=== PATIENT | female | born 1975 | race Caucasian/White ===

== ENCOUNTER → 2017-01-29 | Outpatient (CLI) | payer BC ==
[~2017-01-29] MED LIST: ACET-1311 PO; DIAZ5TAB3 PO; DIPH25CA37 PO; GADAVIST IV PRN; KLN5X PO; NRN600 PO; PRED20TA PO; PRX/40 PO; ZOLP10TA PO
--- NOTE | 2017-01-30 11:17 | DIAGNOSTIC IMAGING REPORT ---
Brain MRI WITH AND WITHOUT CONTRAST HISTORY: S/P CRANI, H/O hemangioblastoma TECHNIQUE: Multiplanar multisequence MRI of the brain was performed both before and after the intravenous administration of contrast. COMPARISON STUDY: None. FINDINGS: No areas of restricted diffusion to suggest acute infarction. The midline structures are intact. The paranasal sinuses and mastoid air cells are clear. The major vascular flow-voids at the skull base are well-maintained. The ventricles are normal in size. There is no hematoma or midline shift. Evidence for prior right suboccipital craniotomy. Small focus of encephalomalacia within the periphery of the right cerebellar hemisphere consistent with postoperative change. No abnormal enhancement to suggest recurrent or residual neoplasm. There are 3 punctate foci of T2 hyperintensity seen within the white matter of the right frontal lobe. These are of doubtful clinical significance but could be seen in the setting of early microvascular ischemic change, migraines or less likely a demyelinating process. IMPRESSION: Postoperative changes within the right cerebral hemisphere. No abnormal enhancement to suggest residual or recurrent neoplasm. Electronically signed by: Scottie Watts M.D. 01/30/2017 11:16 AM Dictated Date/Time: 01/30/2017 11:10 AM
== END | disposition home or self-care (01) ==
LOC: C.MRI 15:12
PROVIDERS: ATTEND Specialist
DX: D43.2 Neoplasm of uncertain behavior of brain, unspecified (principal)

== ENCOUNTER 2017-05-24 13:44 | Emergency (ER) | payer BC ==
[~2017-05-24] VITALS: Ht 160 cm; Wt 46.3 kg
[~2017-05-24 13:44] MED LIST changes: -ACET-1311 PO; -DIAZ5TAB3 PO; -GADAVIST IV PRN; -KLN5X PO; -NRN600 PO; -PRX/40 PO
[2017-05-24 13:59] VITALS: TEMP 37; O2SAT 99; Ht 160 cm; Wt 46.3 kg
[2017-05-24] MEDS ORDERED: DIAZEPAM 5MG TAB PO STA (14:18)
[2017-05-24 14:34] LABS: BASO % 0.3 %; BASO ABS # 0.02 K/uL (0-0.2); COMPLETE YES; EOS % 1.1 %; HEMATOCRIT 38.5 % (37-47); IG% 0.1 %; LYMPH ABS # 2.06 K/uL (1.2-3.4); MEAN CELL VOLUME 84.2 fL (80-100); MEAN CORPUSCULAR HEMOGLOBIN 29.3 pg (25-34); MEAN CORPUSCULAR HGB CONC 34.8 g/dl (32-36); MEAN PLATELET VOLUME 10.5 fL (7.4-10.4); MONO % 3.7 %; NEUT % 65.8 %; PLATELET COUNT 247 K/uL (130-400); RED BLOOD COUNT 4.57 M/uL (4.2-5.4)
[2017-05-24 14:41] LABS: BUN/CREATININE RATIO 19.1 (10-20); CALCIUM 9.5 mg/dl (8.5-10.1); CREATININE 0.98 mg/dl (0.60-1.20); POTASSIUM 4.6 mmol/L (3.5-5.1)
[2017-05-24 14:44] LABS: ALB/GLOB RATIO 1.1 (0.9-2)
[2017-05-24] MEDS ORDERED: KLN5X PO (15:11)
[2017-05-24] MEDS ORDERED: ACET-1311 PO (15:11)
[2017-05-24] MEDS ORDERED: NRN600 PO (15:11)
[2017-05-24] MEDS ORDERED: PRX/40 PO (15:11)
--- NOTE | 2017-05-24 15:18 | DIAGNOSTIC IMAGING REPORT ---
HEAD WITHOUT CONTRAST (CT) CLINICAL HISTORY: 41 years-old Female with left facial twitch. History of brain tumor with prior surgery. Acute facial twitching on the left TECHNIQUE: Multiple axial CT images of the head were obtained without contrast. A dose lowering technique was utilized adhering to the principles of ALARA. CT DOSE: 537.48 mGy.cm COMPARISON: MRI brain 01/29/2017. FINDINGS: No acute intracranial hemorrhage, midline shift, mass, large territorial ischemia or abnormal extra-axial collection. Postoperative changes of the right occipital calvarium and right cerebellar hemisphere redemonstrated. Mild encephalomalacia within the right cerebellar hemisphere noted. The calvarium is intact. The paranasal sinuses, mastoid air cells, and middle ear cavities are clear. IMPRESSION: 1. No acute intracranial abnormality. 2. Postsurgical changes of the right occipital calvarium and right cerebellar hemisphere redemonstrated. The above report was generated using voice recognition software. It may contain grammatical, syntax or spelling errors. Electronically signed by: Tremaine Padilla M.D. 05/24/2017 3:17 PM Dictated Date/Time: 05/24/2017 3:13 PM
[2017-05-24] MEDS ORDERED: DIAZ5TAB3 PO (17:12)
--- NOTE | 2017-05-24 17:18 | EMERGENCY ROOM VISIT NOTE ---
History Report prepared by Maidaibdebra: Anand Bass Under the Supervision of: Dr. Cm Sidhu M.D. First contact with patient: 14:12 Chief Complaint: NEURO SYMPTOMS History of Present Illness The patient is a 41 year old female who presents to the Emergency Room by EMS with complaints of intermittent left sided facial twitching beginning one hour ago. She has no history of similar symptoms. She also complains of headaches. The patient states that she has had tingling in her bilateral legs for the past hour as well. She denies any rapid breathing, visual changes, or hearing changes. The patient had a neural stimulator removed surgically yesterday. 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 She states that the stimulator was a trial test. The patient states that she had the stimulator placed three days earlier. She notes that the stimulator helped significantly with her chronic headaches. She states that the surgical area feels sore. Source of History: patient Onset: One hour ago Position: head (left face) Quality: other (twitching) Timing: intermittent Associated Symptoms: + headache Note: The patient denies any rapid breathing, visual changes, or hearing changes. She also complains of bilateral leg tingling. Review of Systems All systems have been listed, reviewed, and are negative other than those previously mentioned. Please see Additional Medical History Sheet. Past Medical & Surgical Medical Problems: (1) Endometriosis (2) No Known Active Medical Problems Surgical Problems: (1) H/O tubal ligation (2) History of hysterectomy Family History Cancer Heart disease Hypertension Social History Smoking Status: Current Every Day Smoker Alcohol Use: none Marital Status: Housing Status: lives with family Occupation Status: unemployed Current/Historical Medications Scheduled Clonazepam (Clonazepam), 0.5-1 MG PO HS Gabapentin (Gabapentin), 1,200 MG PO TID Paroxetine (Paroxetine HCl), 40 MG PO HS Scheduled PRN Acetaminophen (Tylenol), 650 MG PO Q8 PRN for Pain Diazepam (Valium), 1 TAB PO Q6 PRN for twitching Allergies Coded Allergies: Hydromorphone (Verified Allergy, Severe, HIVES, 11/05/14) Penicillins (Unverified Allergy, Unknown, HIVES, 05/24/17) Physical Exam Vital Signs Date Time Temp Pulse Resp B/P (MAP) Pulse Ox O2 Delivery O2 Flow Rate FiO2 10/7/17 13:59 99 Room Air 05/24/17 13:59 37.0 71 16 117/70 99 Room Air 05/24/17 13:56 72 Physical Exam GENERAL: Patient awake, alert, oriented x 3. Appears anxious. Patient follows commands. Patient does not appear toxic. Patient is adequately hydrated and well-nourished. SKIN: No erythema, pallor, cyanosis or rash HEENT: Normal head, pupils equal, reactive to light and accommodation. Ears normal. Oral cavity and posterior pharynx appear normal. Neck: Without adenopathy, no neck vein distention. LUNGS: Clear to auscultation. No wheezes, no rales, no rhonchi. HEART: No murmurs. No gallops. No rubs ABDOMEN: Soft and non-tender. EXTREMITIES: No signs of trauma. No pedal or pretibial edema. No calf or thigh tenderness. NEUROLOGIC: Left facial droop with an elevation of her left upper lip. Moves all extremities well. Medical Decision & Procedures ER Provider Diagnostic Interpretation: CT results are interpretations by the radiologist and per my review. HEAD WITHOUT CONTRAST (CT) FINDINGS: No acute intracranial hemorrhage, midline shift, mass, large territorial ischemia or abnormal extra-axial collection. Postoperative changes of the right occipital calvarium and right cerebellar hemisphere redemonstrated. Mild encephalomalacia within the right cerebellar hemisphere noted. The calvarium is intact. The paranasal sinuses, mastoid air cells, and middle ear cavities are clear. IMPRESSION: 1. No acute intracranial abnormality. 2. Postsurgical changes of the right occipital calvarium and right cerebellar hemisphere redemonstrated. The above report was generated using voice recognition software. It may contain grammatical, syntax or spelling errors. Electronically signed by: Tremaine Padilla M.D. 05/24/2017 3:17 PM Laboratory Results 05/24/17 13:30 Red Blood Count 4.57, Mean Corpuscular Volume 84.2, Mean Corpuscular Hemoglobin 29.3, Mean Corpuscular Hemoglobin Concent 34.8, Mean Platelet Volume 10.5, Neutrophils (%) (Auto) 65.8, Lymphocytes (%) (Auto) 29.0, Monocytes (%) (Auto) 3.7, Eosinophils (%) (Auto) 1.1, Basophils (%) (Auto) 0.3, Neutrophils # (Auto) 4.67, Lymphocytes # (Auto) 2.06, Monocytes # (Auto) 0.26, Eosinophils # (Auto) 0.08, Basophils # (Auto) 0.02 05/24/17 13:30 Test 05/24/17 13:30 White Blood Count 7.10 K/uL (4.8-10.8) Red Blood Count 4.57 M/uL (4.2-5.4) Hemoglobin 13.4 g/dL (12.0-16.0) Hematocrit 38.5 % (37-47) Mean Corpuscular Volume 84.2 fL (80-100) Mean Corpuscular Hemoglobin 29.3 pg (25-34) Mean Corpuscular Hemoglobin Concent 34.8 g/dl (32-36) Platelet Count 247 K/uL (130-400) Mean Platelet Volume 10.5 fL (7.4-10.4) Neutrophils (%) (Auto) 65.8 % Lymphocytes (%) (Auto) 29.0 % Monocytes (%) (Auto) 3.7 % Eosinophils (%) (Auto) 1.1 % Basophils (%) (Auto) 0.3 % Neutrophils # (Auto) 4.67 K/uL (1.4-6.5) Lymphocytes # (Auto) 2.06 K/uL (1.2-3.4) Monocytes # (Auto) 0.26 K/uL (0.11-0.59) Eosinophils # (Auto) 0.08 K/uL (0-0.5) Basophils # (Auto) 0.02 K/uL (0-0.2) RDW Standard Deviation 42.0 fL (36.4-46.3) RDW Coefficient of Variation 13.8 % (11.5-14.5) Immature Granulocyte % (Auto) 0.1 % Immature Granulocyte # (Auto) 0.01 K/uL (0.00-0.02) Anion Gap 7.0 mmol/L (3-11) Est Creatinine Clear Calc Drug Dose 56.3 ml/min Estimated GFR () 84.2 Estimated GFR (Non- 72.7 BUN/Creatinine Ratio 19.1 (10-20) Calcium Level 9.5 mg/dl (8.5-10.1) Total Bilirubin 0.4 mg/dl (0.2-1) Aspartate Amino Transf (AST/SGOT) 26 U/L (15-37) Alanine Aminotransferase (ALT/SGPT) 26 U/L (12-78) Alkaline Phosphatase 111 U/L (45-117) Total Protein 7.4 gm/dl (6.4-8.2) Albumin 3.9 gm/dl (3.4-5.0) Globulin 3.5 gm/dl (2.5-4.0) Albumin/Globulin Ratio 1.1 (0.9-2) Laboratory results as stated above per my review. Medications Administered Medications (Trade) Dose Ordered Sig/[place] Route Start Time Stop Time Status Last Admin Dose Admin Diazepam (Valium Tab) 5 mg NOW STAT PO 05/24/17 14:18 05/24/17 14:22 DC 05/24/17 14:32 5 MG ECG Indication: other (neurological symptoms) Rate (beats per minute): 70 Rhythm: normal sinus Findings: no acute ischemic change, no ectopy, other (Low voltage) ED Course 1412: Past medical records reviewed. The patient was evaluated in room B12B. A complete history and physical examination was performed. 1418: Ordered Valium Tab 5 mg PO. 1550: I reassessed the patient. She is sleeping. Upon arousal her twitching has resumed. 1800: The patient was signed out to Dr. Rojas at the change of shift pending MRI results. Medical Decision Nurses notes reviewed. Medical history sheet reviewed. Differential diagnosis includes but is not limited to: TIA, CVA, anxiety, seizure and metabolic disorder. The patient is here with a left facial twitch. She's had a past neurosurgical procedure done and recently had a neurostimulator removed as a test. The twitching began sometime this morning. She has no prior history of seizures or twitches like this. Multiple labs and CT were performed. Please see above. I discussed care with neurosurgery at [facility] where she had her previous surgery. They offered to have the patient admitted there the patient declined and suggested asked if we could perform the needed tests here. An MRI will be done here from our ED and hopefully an EEG done in 2-3 days. In the meantime the patient will be given a prescription for Valium. The case was signed offf to Dr. Rojas at change of shift. [place] Drug Monitoring Program Search Results: patient reviewed within database, no issues identified Medication Reconcilliation Current Medication List: was personally reviewed by me Blood Pressure Screening Patient's blood pressure: Normal blood pressure Blood pressure disposition: Did not require urgent referral Consults Time Called: 161 Consulting Physician: Dr. Tijerina- Neurology Returned Call: 161 Discussed the patient's case with Dr. Tijerina. He agrees with the treatment plan and recommends proceeding with MRI today and EEG on Friday or Friday. Additional Consults: Time Called: 160 Consulted Physician: Dr. Schwartz -[facility] Returned Call: [phone] Additional Comments: Discussed the patient's case with Dr. Schwartz. He offered for the patient to be admitted, and receive MRI and EEG at [facility]. I discussed this with the patient, but the patient would not like to travel to [place]. Impression Primary Impression: Partial seizure Scribe Attestation The scribe's documentation has been prepared under my direction and personally reviewed by me in its entirety. I confirm that the note above accurately reflects all work, treatment, procedures, and medical decision making performed by me. Departure Information Dispostion Home / Self-Care Prescriptions Diazepam (VALIUM) 5 Mg Tab 1 TAB PO Q6 Y for twitching for 30 Days, #20 TAB Prov: Cm Sidhu M.D. 05/24/17 Referrals Mo Chen D.O. (PCP) Bettina Tijerina M.D. Patient Instructions My [facility] Additional Instructions 5 mg of Valium every 6 hours as needed for facial twitch. Valium results in significant sedation. Do not drive while taking Valium or as long as you have the facial twitching. Follow-up with your EEG as scheduled. Follow-up with neurology. Someone from the hospital will call you for an appointment time.
[2017-05-24] MEDS ORDERED: GADAVIST IV PRN (17:30)
--- NOTE | 2017-05-24 18:41 | DIAGNOSTIC IMAGING REPORT ---
BRAIN COMBO FOR SEIZURE HISTORY: 41 years-old Female attention left 5th cranial nerve acute seizure with history of prior brain surgery. Acute confusion with slurred speech. COMPARISON: Head CT of same day, brain MR 01/29/2017 TECHNIQUE: Multiplanar multisequence MRI of the brain was obtained both with and without 4.5 mL Gadavist utilizing seizure protocol FINDINGS: There is no restricted diffusion to suggest acute ischemia. Midline structures including the corpus callosum, brainstem, optic chiasm, pituitary and pineal glands are unremarkable on the sagittal T1 sequence. No cerebellar tonsillar herniation. Mild degenerative changes of the cervical spine. No acute intracranial hemorrhage, midline shift or abnormal extra-axial collections. Focal area of mildly increased T2/FLAIR signal is noted within the subcortical white matter of the right frontal lobe, image 10 of series 7. This appears unchanged from prior study and is likely of no clinical significance. Differential considerations would include gliosis from chronic migraines, early chronic microvascular ischemic changes or less likely demyelinating process. Previously noted smaller foci of the right frontal lobe are not clearly seen. Postsurgical changes of the right occipital calvarium and right cerebellar hemisphere are noted with micrometallic artifact again seen within this distribution. Encephalomalacia and mild gliosis at the surgical site of the right cerebellar hemisphere appears unchanged. No abnormal enhancement. No evidence of tumor recurrence or metastatic disease. No intra-axial or extra-axial mass identified. The bilateral mesial temporal lobes appear symmetric with normal signal. No hippocampal atrophy. No seizure focus identified. Major flow voids at the level of the skull base are patent. No mastoid effusion. Paranasal sinuses are generally clear. Soft tissues are unremarkable. IMPRESSION: 1. No acute intracranial abnormality. 2. Postoperative changes of the right cerebellar hemisphere redemonstrated without evidence of residual or recurrent disease. 3. No seizure focus identified. No evidence of mesial temporal sclerosis. The above report was generated using voice recognition software. It may contain grammatical, syntax or spelling errors. Electronically signed by: Tremaine Padilla M.D. 05/24/2017 6:39 PM Dictated Date/Time: 05/24/2017 6:16 PM
[2017-05-24 18:46] VITALS: BP 125/79; PULSE 80; O2SAT 99
--- NOTE | 2017-05-24 18:46 | EMERGENCY ROOM VISIT NOTE ---
ED Visit Note First contact with patient: 18:03 This patient was signed out to me by Dr. Sidhu. He had spoken to her neurosurgeon in [place]. They had arranged for outpatient EEG and MRI in the emergency department. The patient was signed out to me pending the MRI result. The MRI demonstrates no acute changes. I did reassess the patient. She has no symptoms at this time. Her twitching is gone. She does wish to go home. She will follow up as per of some instructions. He did give her a prescription for Valium.
== END 2017-05-24 19:11 | disposition home or self-care (01) ==
LOC: EDBD 13:44 → C.EDB 13:48
DX: R56.9 Unspecified convulsions (principal); N80.9 Endometriosis, unspecified; F17.200 Nicotine dependence, unspecified, uncomplicated; Z90.710 Acquired absence of both cervix and uterus; Z98.51 Tubal ligation status; Z98.890 Other specified postprocedural states; Z82.49 Family history of ischemic heart disease and other diseases of the circulatory system

== ENCOUNTER → 2017-05-26 | Outpatient (CLI) | payer BC ==
[~2017-05-26] MED LIST changes: +ACET-1311 PO; +DIAZ5TAB3 PO; +KLN5X PO; +NRN600 PO; +PRX/40 PO
--- NOTE | 2017-05-26 19:33 | MOTOR CONDUCTION ---
CLINICAL DIAGNOSIS: Posterior fossa tumor removal 2015, now with several clinical seizures. EEG DIAGNOSIS: Essentially normal during wakefulness and brief duration of drowsiness. REQUESTING DOCTOR: Drs. Tijerina and Dorota. DESCRIPTION OF TRACING: This EEG was done in the laboratory, is of good technical quality. A simultaneous video analysis of patient movement and behavior was obtained. Photic stimulation is the only activation procedure utilized. Hyperventilation was not performed. Drowsiness and light sleep are episodically recorded. During wakefulness, there is evidence for normal background rhythm in the alpha range of up to 10 Hz of maximum frequency and 30 microvolts of maximum amplitude. This is maximum in posterior head regions and bilaterally symmetrical. Polymorphic mid frequency theta activity is seen over all head regions without clear focal or regional predominance. Anterior head region maximum bilaterally symmetrical low voltage fast activity in the beta range is present. Photic stimulation provokes a modest driving response without a photomyogenic or photoparoxysmal component. Episodes of drowsiness are recorded, never emerging into a sustained sleep, and during these intervals, background rhythm becomes more synchronized and shifts into slower frequencies, but no abnormal activations occur. At no time, therefore, during the waking or drowsy recordings is there evidence for a clearcut potentially epileptogenic activity in the form of polyspike or spike wave bursts, focal sharp waves or focal spikes. INTERPRETATION: This EEG is essentially normal during wakefulness and brief duration of drowsiness without evidence for focal or generalized encephalopathy and without evidence for potentially epileptogenic activity but the absence of the latter does not exclude the diagnosis of a seizure disorder and clinical correlation is required.
== END | disposition home or self-care (01) ==
LOC: C.NEUR 10:51
PROVIDERS: ATTEND Psychiatry & Neurology Neurology
DX: R56.9 Unspecified convulsions (principal)

== ENCOUNTER → 2017-07-14 | Outpatient (CLI) | payer BC ==
[~2017-07-14] MED LIST changes: -DIAZ5TAB3 PO; -DIPH25CA37 PO; -PRED20TA PO; -ZOLP10TA PO
== END | disposition home or self-care (01) ==
LOC: C.NEUR 13:22
PROVIDERS: ATTEND Physician Assistant
DX: R56.9 Unspecified convulsions (principal)

== ENCOUNTER 2017-08-22 19:55 | Emergency (ER) | payer BC ==
[~2017-08-22] VITALS: Ht 157.5 cm; Wt 42.6 kg
[2017-08-22 19:57] VITALS: TEMP 36.5; Ht 157.5 cm; Wt 42.6 kg
[2017-08-22] MEDS ORDERED: LORAZEPAM 1 MG TAB SL STA (20:16)
--- NOTE | 2017-08-22 20:20 | EMERGENCY ROOM VISIT NOTE ---
History Report prepared by Sidney: Remberto Jones Under the Supervision of: Dr. Mo Walden M.D. First contact with patient: 20:02 Chief Complaint: FALL Stated Complaint: SEIZURE History of Present Illness The patient is a 41 year old female who presents to the Emergency Room with complaints of a seizure just prior to arrival. She was sitting on the toilet seat and was holding her daughter's bunny when she tried to stand up when her legs began to shake. She fell and hit the back of her head and left shoulder on her porcelain bathtub. She reports exhaustion and feeling lightheaded. She denies syncope, nausea, vomiting, neck pain, back pain, sick contacts, dysuria, hematuria, drugs, and alcohol use. The patient has a surgical history of brain surgery in 2015 and has an implanted nerve stimulator. 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 Review of Systems See HPI for pertinent positives & negatives. A total of 10 systems reviewed and were otherwise negative. Past Medical & Surgical Medical Problems: (1) Endometriosis (2) No Known Active Medical Problems Surgical Problems: (1) H/O tubal ligation (2) History of hysterectomy Family History Cancer Heart disease Hypertension Social History Smoking Status: Current Every Day Smoker Alcohol Use: none Marital Status: Housing Status: lives with family Occupation Status: unemployed Current/Historical Medications Scheduled Bupropion (Wellbutrin Sr), 150 MG PO DAILY Clonazepam (Clonazepam), 0.5 MG PO BID Gabapentin (Gabapentin), 900 MG PO TID Paroxetine (Paroxetine HCl), 40 MG PO HS Scheduled PRN Diazepam (Valium), 5 MG PO Q6 PRN for SEIZURES Diphenhydramine Hcl (Benadryl), 25 MG PO HS PRN for Sleep Allergies Coded Allergies: Hydromorphone (Verified Allergy, Intermediate, HIVES, 05/24/17) Penicillins (Verified Allergy, Intermediate, HIVES, 05/24/17) Acetaminophen (Verified Adverse Reaction, Severe, NAUSEA/VOMITING, 08/22/17) Oxycodone (Verified Adverse Reaction, Severe, NAUSEA/VOMITING, 08/22/17) Physical Exam Vital Signs Date Time Temp Pulse Resp B/P (MAP) Pulse Ox O2 Delivery O2 Flow Rate FiO2 08/22/17 19:57 36.5 79 18 114/73 97 Room Air Physical Exam GENERAL: Patient is anxious appearing and in little distress, cachectic. HEENT: No acute trauma, normocephalic atraumatic, mucous membranes moist, no nasal congestion, no scleral icterus. NECK: No stridor, no adenopathy, no meningismus, trachea is midline. LUNGS: No dyspnea. Clear to auscultation and equal bilaterally. No wheeze, no rhonchi. HEART: Regular rate and rhythm. No murmurs, rubs, gallops appreciated. ABDOMEN: Soft, nontender, bowel sounds positive, no masses appreciated, no peritonitis. BACK: No midline tenderness, no CVA tenderness EXTREMITIES: Normal motion all extremities, no cyanosis, no edema. NEUROLOGIC: Alert and oriented, no acute motor or sensory deficits, no focal weakness, cranial nerves grossly intact. SKIN: No rash, no jaundice, no diaphoresis. Medical Decision & Procedures ER Provider Diagnostic Interpretation: Radiology results and stated below per my review and radiologist interpretation: L SHOULDER MIN 2 VIEWS ROUTINE CLINICAL HISTORY: Left shoulder pain status post fall. COMPARISON: None FINDINGS: Alignment of the left shoulder is anatomic. No acute fracture is identified. No osseous lesion is identified. IMPRESSION: No acute fracture or dislocation of the left shoulder. Electronically signed by: Errol Price M.D. 08/22/2017 8:36 PM Dictated Date/Time: 08/22/2017 8:[address] OF THE HEAD WITHOUT CONTRAST CLINICAL HISTORY: Fall, posterior head injury during seizure. History of hemangioblastoma status post resection. COMPARISON STUDY: Head CT and MRI the brain May 24, 2017. CT DOSE: 537.48 mGy.cm TECHNIQUE: Helical axial images of the head were obtained without IV contrast. Automated exposure control was utilized for the study. A dose lowering technique was utilized adhering to the principles of ALARA. FINDINGS: The patient is status post right occipital craniotomy. The postoperative appearance is unchanged since prior exam of May 24, 2017. Ventricular system is normal. The basilar cisterns are patent. There are no extra-axial collections. Sanchez-white differentiation is maintained. There are no findings to suggest acute dural sinus thrombosis or acute territorial infarct. No calvarial fracture is present. IMPRESSION: No acute intracranial findings. No change since previous exam. Electronically signed by: Errol Price M.D. 08/22/2017 8:53 PM Dictated Date/Time: 08/22/2017 8:49 PM Medications Administered Medications (Trade) Dose Ordered Sig/[place] Route Start Time Stop Time Status Last Admin Dose Admin Lorazepam (Ativan Tab) 1 mg NOW STAT SL 08/22/17 20:16 08/22/17 20:17 DC 08/22/17 20:27 1 MG Ibuprofen (Motrin Tab) 800 mg NOW STAT PO 08/22/17 21:01 08/22/17 21:03 DC 08/22/17 21:13 800 MG Acetaminophen/ Hydrocodone Bitart ([place] 5/325mg Home Pack) 1 homepack UD ONCE PO 08/22/17 21:15 08/22/17 21:16 DC 08/22/17 21:13 1 HOMEPACK ED Course 2026: The patient was evaluated in room A12. A complete history and physical exam was performed. 2103: I checked on the patient and she still has a headache. NSAIDs work well for her by sometimes she needs narcotics. I discussed home with narcotics and restrictions. She will be going home with her . She will see her physician next week. 2109: Reevaluated the patient. Discussed results and discharge instructions: The patient and her verbalized understanding and agreement. The patient is ready for discharge. Medical Decision Differential: Neurologic, Sepsis, Infectious (UTI/Pneumonia/Meningitis/etc), Metabolic/Electrolyte Abnormality, amongst other pathologies entertained. 41 yr old female with what sounds like partial seizure disorder post brain surgery, though admits brought on by stress. Today with bilateral leg shaking resulting in fall striking back of head on tub and left shoulder hitting something. No other injuries nor neck pain. Anxious on arrival thus with reported seizure felt reasonable given dose Ativan. CT head and shoulder xray negative acute findings. Looks well. Continued headache thus Motrin and has done well with [place] previously thus given to go pack with restrictions reviewed. Stressed rest, hydration and if worsening/other RTED/911. Stable and looks well at discharge. No evidence this was meningitis, sepsis, nor reason to suspect metabilic/electrolyte cause. Medication Reconcilliation Current Medication List: was personally reviewed by me Blood Pressure Screening Patient's blood pressure: Elevated blood pressure Blood pressure disposition: Elevated BP felt to be situational Impression Primary Impression: Partial seizure Additional Impressions: Closed head injury Contusion of left shoulder Scribe Attestation The scribe's documentation has been prepared under my direction and personally reviewed by me in its entirety. I confirm that the note above accurately reflects all work, treatment, procedures, and medical decision making performed by me. Departure Information Dispostion Home / Self-Care Referrals Mo Chen D.O. (PCP) Patient Instructions My [facility] Additional Instructions Rest, keep well hydrated and avoid any stimulants over the next few days. Do not drive and avoid situations where you may be injured if you have a seizure. Follow up with your neurologist to discuss further treatment. Call 911 or Return immediately if severe headache, passing out, or other new concerning symptoms. Problem Qualifiers
--- NOTE | 2017-08-22 20:37 | DIAGNOSTIC IMAGING REPORT ---
L SHOULDER MIN 2 VIEWS ROUTINE CLINICAL HISTORY: Left shoulder pain status post fall. COMPARISON: None FINDINGS: Alignment of the left shoulder is anatomic. No acute fracture is identified. No osseous lesion is identified. IMPRESSION: No acute fracture or dislocation of the left shoulder. Electronically signed by: Errol Price M.D. 08/22/2017 8:36 PM Dictated Date/Time: 08/22/2017 8:34 PM
[2017-08-22] MEDS ORDERED: DIAZ5TAB3 PO (20:40)
[2017-08-22] MEDS ORDERED: DIPH25CA5 PO (20:40)
[2017-08-22] MEDS ORDERED: BUPR-79 PO (20:40)
--- NOTE | 2017-08-22 20:55 | DIAGNOSTIC IMAGING REPORT ---
CT OF THE HEAD WITHOUT CONTRAST CLINICAL HISTORY: Fall, posterior head injury during seizure. History of hemangioblastoma status post resection. COMPARISON STUDY: Head CT and MRI the brain May 24, 2017. CT DOSE: 537.48 mGy.cm TECHNIQUE: Helical axial images of the head were obtained without IV contrast. Automated exposure control was utilized for the study. A dose lowering technique was utilized adhering to the principles of ALARA. FINDINGS: The patient is status post right occipital craniotomy. The postoperative appearance is unchanged since prior exam of May 24, 2017. Ventricular system is normal. The basilar cisterns are patent. There are no extra-axial collections. Sanchez-white differentiation is maintained. There are no findings to suggest acute dural sinus thrombosis or acute territorial infarct. No calvarial fracture is present. IMPRESSION: No acute intracranial findings. No change since previous exam. Electronically signed by: Errol Price M.D. 08/22/2017 8:53 PM Dictated Date/Time: 08/22/2017 8:49 PM
[2017-08-22] MEDS ORDERED: IBUPROFEN 800 MG TAB PO STA (21:01)
[2017-08-22] MEDS ORDERED: NORCO 5/325MG HOME PACK PO ONE (21:15)
[2017-08-22 21:31] VITALS: BP 103/71; PULSE 67; O2SAT 98
== END 2017-08-22 21:34 | disposition home or self-care (01) ==
LOC: C.EDB 19:57 → C.EDA 21:34
DX: G40.109 Localization-related (focal) (partial) symptomatic epilepsy and epileptic syndromes with simple partial seizures, not intractable, without status epilepticus (principal); S09.90XA Unspecified injury of head, initial encounter; S40.012A Contusion of left shoulder, initial encounter; W22.8XXA Striking against or struck by other objects, initial encounter; Y92.012 Bathroom of single-family (private) house as the place of occurrence of the external cause; N80.9 Endometriosis, unspecified; Z80.9 Family history of malignant neoplasm, unspecified; Z82.49 Family history of ischemic heart disease and other diseases of the circulatory system; F17.210 Nicotine dependence, cigarettes, uncomplicated; Z79.899 Other long term (current) drug therapy

== ENCOUNTER → 2017-08-27 | Outpatient (CLI) | payer BC ==
[~2017-08-27] MED LIST changes: -ACET-1311 PO; +BUPR-79 PO; +DIAZ5TAB3 PO; +DIPH25CA5 PO
== END | disposition home or self-care (01) ==
LOC: C.NEUR 08:55
PROVIDERS: ATTEND Psychiatry & Neurology Neurology
DX: R56.9 Unspecified convulsions (principal)

== ENCOUNTER 2017-10-22 18:03 | Emergency (ER) | payer BC ==
[~2017-10-22] VITALS: Ht 162.6 cm; Wt 39.2 kg
[~2017-10-22 18:03] MED LIST changes: +ACET-1256 PO; -DIAZ5TAB3 PO; -DIPH25CA5 PO; +IBUP-1050 PO
[2017-10-22 18:23] VITALS: TEMP 36.8; Ht 162.6 cm; Wt 39.2 kg
[2017-10-22] MEDS ORDERED: SODIUM CHLORIDE 0.9% 1000ML 1,000 ML IV STA (18:35)
[2017-10-22] MEDS ORDERED: DiphenhydrAMINE HCL 50 MG/ML VIAL IV STA (18:35)
[2017-10-22] MEDS ORDERED: PROCHLORPERAZINE 5 MG/ML 2 ML VIAL IV STA (18:35)
[2017-10-22] MEDS ORDERED: KETOROLAC TROMETHAMINE 30 MG/ML VIAL IV STA (18:35)
[2017-10-22] MEDS ORDERED: ULT50 PO (19:10)
[2017-10-22] MEDS ORDERED: TPM25 PO (19:10)
[2017-10-22 19:21] LABS: HEMATOCRIT 42.1 % (37-47); HEMOGLOBIN 14.9 g/dL (12.0-16.0); MEAN CELL VOLUME 85.2 fL (80-100); MEAN CORPUSCULAR HEMOGLOBIN 30.2 pg (25-34); MEAN CORPUSCULAR HGB CONC 35.4 g/dl (32-36); MEAN PLATELET VOLUME 11.2 fL (7.4-10.4); PLATELET COUNT 177 K/uL (130-400); RED CELL DISTRIBUTION WIDTH CV 13.6 % (11.5-14.5); RED CELL DISTRIBUTION WIDTH SD 42.2 fL (36.4-46.3); WHITE BLOOD COUNT 4.25 K/uL (4.8-10.8)
--- NOTE | 2017-10-22 19:22 | DIAGNOSTIC IMAGING REPORT ---
CT SCAN OF THE BRAIN WITHOUT IV CONTRAST CLINICAL HISTORY: Headache. COMPARISON STUDY: CT of the brain dated 08/22/2017. TECHNIQUE: Unenhanced axial CT scan of the brain is performed from the vertex to the skull base. A dose lowering technique was utilized adhering to the principles of ALARA. CT DOSE: 537.48 mGy.cm FINDINGS: Brain parenchyma: A small focus of right cerebral encephalomalacia is unchanged. The brain parenchyma is otherwise normal in appearance. There is no hemorrhage, mass effect, or evidence of acute territorial ischemia by CT criteria. Sanchez-white matter is preserved. No extra-axial fluid collection is seen. Ventricles, sulci, cisterns: Normal in configuration. Intracranial vasculature: The visualized intracranial vasculature at the skull base is normal in appearance. Calvarium: There are postoperative changes from right occipital craniotomy. Sinuses and mastoids: The visualized paranasal sinuses are clear. The mastoid air cells are well pneumatized. Orbits: The bony orbits are grossly intact. IMPRESSION: No acute intracranial abnormality. Electronically signed by: Jason Monet M.D. 10/22/2017 7:20 PM Dictated Date/Time: 10/22/2017 7:19 PM
[2017-10-22] MEDS ORDERED: MoRPHine SULFATE 4 MG/ML 1 ML CARP\\VIAL IV STA (19:28)
[2017-10-22] MEDS ORDERED: ONDANSETRON INJ 2 MG/ML 2 ML VIAL IV STA (19:28)
[2017-10-22 19:39] LABS: CALCIUM 9.4 mg/dl (8.5-10.1); CREATININE 0.92 mg/dl (0.60-1.20); POTASSIUM 3.8 mmol/L (3.5-5.1)
[2017-10-22 19:41] LABS: BASO % 0.5 %; BASO ABS # 0.02 K/uL (0-0.2); EOS % 1.6 %; EOS ABS # 0.07 K/uL (0-0.5); LYMPH % 57.2 %; LYMPH ABS # 2.43 K/uL (1.2-3.4); MONO % 7.1 %; NEUT % 33.6 %; NEUT ABS # 1.43 K/uL (1.4-6.5)
[2017-10-22 20:19] VITALS: BP 114/76; PULSE 52; O2SAT 98
[2017-10-22] MEDS ORDERED: DIPH25CA5 PO (20:40)
[2017-10-22] MEDS ORDERED: DIAZ5TAB3 PO (20:40)
--- NOTE | 2017-10-23 00:14 | EMERGENCY ROOM VISIT NOTE ---
History Report prepared by Sidney: Deven Varghese Under the Supervision of: Dr. Ghulam Bernard D.O. First contact with patient: 18:26 Chief Complaint: HEADACHE Stated Complaint: MIGRAINE 9 DAYS, DIZZINESS, UNEQUALIBRIUM ISSUE History of Present Illness The patient is a 41 year old female who presents to the Emergency Room with complaints of a persistent headache that the patient has had for the past 9 days. The patient states that the pain is localized to her forehead, top of her head, and bilateral temples. She rates this pain as a 9/10 in severity. The patient notes that she has had a history of migraines for the past 5 years, but that this one is different due to its location. 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 She had surgery to have this tumor removed. The patient did discuss her symptoms with her Neurologist recently, who prescribed her Tramadol. She notes that the Tramadol does not touch her pain. She denies any associated changes in vision. The patient also denies fevers, chest pain, shortness of breath, nausea, vomiting, diarrhea, pain with urination, and melena. 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 A total of 10 systems reviewed and were otherwise negative. Past Medical & Surgical Medical Problems: (1) Brain cancer (2) Endometriosis (3) Hemangioblastoma Surgical Problems: (1) H/O tubal ligation (2) History of hysterectomy Family History Cancer Heart disease Hypertension Social History Smoking Status: Current Every Day Smoker Alcohol Use: none Marital Status: Housing Status: lives with family Occupation Status: disabled Current/Historical Medications Scheduled Acetaminophen (Tylenol), 1,000 MG PO Q6 Clonazepam (Clonazepam), 2 TABS PO HS Gabapentin (Gabapentin), 1,200 MG PO BID Topiramate (Topiramate), 50 MG PO HS Tramadol HCl (Tramadol HCl), 50 MG PO PRN UD Scheduled PRN Diazepam (Valium), 5 MG PO Q6 PRN for SEIZURES Diphenhydramine Hcl (Benadryl), 25 MG PO HS PRN for Sleep Ibuprofen (Advil), 400 MG PO PRN UD PRN for Headache or Pain Allergies Coded Allergies: Hydromorphone (Verified Allergy, Intermediate, HIVES, 05/24/17) Penicillins (Verified Allergy, Intermediate, HIVES, 05/24/17) Acetaminophen (Verified Adverse Reaction, Severe, NAUSEA/VOMITING, 08/22/17) Oxycodone (Verified Adverse Reaction, Severe, NAUSEA/VOMITING, 08/22/17) Physical Exam Vital Signs Date Time Temp Pulse Resp B/P (MAP) Pulse Ox O2 Delivery O2 Flow Rate FiO2 10/22/17 20:19 52 14 114/76 98 10/22/17 19:40 54 16 110/72 97 Room Air 10/22/17 18:23 36.8 83 18 110/80 96 Room Air Physical Exam GENERAL: Sitting up in bed, alert, well appearing, well nourished, no distress, non-toxic EYE EXAM: normal conjunctiva. PERRL and EOM's intact. OROPHARYNX: no exudate, no erythema, lips, buccal mucosa, and tongue normal and mucous membranes are moist HEAD: There is an old right lateral neck incision. NECK: supple, no nuchal rigidity, no adenopathy, non-tender LUNGS: Clear to auscultation. Normal chest wall mechanics HEART: no murmurs, S1 normal and S2 normal ABDOMEN: abdomen soft, non-tender, normo-active bowel sounds, no masses, no rebound or guarding. BACK: Back is symmetrical on inspection and there is no deformity, no midline tenderness, no CVA tenderness. SKIN: no rashes and no bruising UPPER EXTREMITIES: upper extremities are grossly normal. LOWER EXTREMITIES: No pitting edema. NEURO EXAM: Normal sensorium, cranial nerves II-XII intact, normal speech, no weakness of arms, no weakness of legs. No drift. Finger to nose intact. Gross sensation intact. Medical Decision & Procedures ER Provider Diagnostic Interpretation: Radiology results as stated below per my review and the radiologist's interpretation: CT SCAN OF THE BRAIN WITHOUT IV CONTRAST CLINICAL HISTORY: Headache. COMPARISON STUDY: CT of the brain dated 08/22/2017. TECHNIQUE: Unenhanced axial CT scan of the brain is performed from the vertex to the skull base. A dose lowering technique was utilized adhering to the principles of ALARA. CT DOSE: 537.48 mGy.cm FINDINGS: Brain parenchyma: A small focus of right cerebral encephalomalacia is unchanged. The brain parenchyma is otherwise normal in appearance. There is no hemorrhage, mass effect, or evidence of acute territorial ischemia by CT criteria. Sanchez-white matter is preserved. No extra-axial fluid collection is seen. Ventricles, sulci, cisterns: Normal in configuration. Intracranial vasculature: The visualized intracranial vasculature at the skull base is normal in appearance. Calvarium: There are postoperative changes from right occipital craniotomy. Sinuses and mastoids: The visualized paranasal sinuses are clear. The mastoid air cells are well pneumatized. Orbits: The bony orbits are grossly intact. IMPRESSION: No acute intracranial abnormality. Electronically signed by: Jason Monet M.D. 10/22/2017 7:20 PM Dictated Date/Time: 10/22/2017 7:19 PM Laboratory Results 10/22/17 19:00 Red Blood Count 4.94, Mean Corpuscular Volume 85.2, Mean Corpuscular Hemoglobin 30.2, Mean Corpuscular Hemoglobin Concent 35.4, Mean Platelet Volume 11.2, Neutrophils (%) (Auto) 33.6, Lymphocytes (%) (Auto) 57.2, Monocytes (%) (Auto) 7.1, Eosinophils (%) (Auto) 1.6, Basophils (%) (Auto) 0.5, Neutrophils # (Auto) 1.43, Lymphocytes # (Auto) 2.43, Monocytes # (Auto) 0.30, Eosinophils # (Auto) 0.07, Basophils # (Auto) 0.02 10/22/17 19:00 Test 10/22/17 19:00 White Blood Count 4.25 K/uL (4.8-10.8) Red Blood Count 4.94 M/uL (4.2-5.4) Hemoglobin 14.9 g/dL (12.0-16.0) Hematocrit 42.1 % (37-47) Mean Corpuscular Volume 85.2 fL (80-100) Mean Corpuscular Hemoglobin 30.2 pg (25-34) Mean Corpuscular Hemoglobin Concent 35.4 g/dl (32-36) Platelet Count 177 K/uL (130-400) Mean Platelet Volume 11.2 fL (7.4-10.4) Neutrophils (%) (Auto) 33.6 % Lymphocytes (%) (Auto) 57.2 % Monocytes (%) (Auto) 7.1 % Eosinophils (%) (Auto) 1.6 % Basophils (%) (Auto) 0.5 % Neutrophils # (Auto) 1.43 K/uL (1.4-6.5) Lymphocytes # (Auto) 2.43 K/uL (1.2-3.4) Monocytes # (Auto) 0.30 K/uL (0.11-0.59) Eosinophils # (Auto) 0.07 K/uL (0-0.5) Basophils # (Auto) 0.02 K/uL (0-0.2) RDW Standard Deviation 42.2 fL (36.4-46.3) RDW Coefficient of Variation 13.6 % (11.5-14.5) Immature Granulocyte % (Auto) 0.0 % Immature Granulocyte # (Auto) 0.00 K/uL (0.00-0.02) Red Blood Cell Morphology Unremarkable Anion Gap 6.0 mmol/L (3-11) Est Creatinine Clear Calc Drug Dose 50.8 ml/min Estimated GFR () 90.9 Estimated GFR (Non- 78.4 BUN/Creatinine Ratio 19.3 (10-20) Calcium Level 9.4 mg/dl (8.5-10.1) Laboratory results per my review. Medications Administered Medications (Trade) Dose Ordered Sig/[place] Route Start Time Stop Time Status Last Admin Dose Admin Prochlorperazine Edisylate (Compazine Inj) 10 mg NOW STAT IV 10/22/17 18:35 10/22/17 18:37 DC 10/22/17 18:51 10 MG Ketorolac Tromethamine (Toradol Inj) 30 mg NOW STAT IV 10/22/17 18:35 10/22/17 18:37 DC 10/22/17 18:55 30 MG Diphenhydramine HCl (Benadryl Inj) 50 mg NOW STAT IV 10/22/17 18:35 10/22/17 18:37 DC 10/22/17 18:51 50 MG Sodium Chloride 1,000 ml @ 999 mls/hr Q1H1M STAT IV 10/22/17 18:35 10/22/17 19:35 DC 10/22/17 18:51 999 MLS/HR ED Course ED COURSE: Vital signs were reviewed and showed normal vitals. The patients medical record was reviewed The above diagnostic studies were performed and reviewed. ED treatments and interventions as stated above. 1829: The patient was evaluated in room B8. A complete history and physical examination was performed. 1835: Ordered Sodium Chloride 1000 mL @ 999 mL/hr IV, Benadryl 50 mg IV, Toradol 30 mg IV, Compazine 10 mg IV. 1927: Ordered Zofran 4 mg IV, Morphine Sulfate 4 mg IV. 2005: Upon reevaluation, the patient is refusing a MRI and would like to go home.I discussed my findings with the patient and She understands and agrees with the treatment plan. Based on the patients age, coexisting illnesses, exam and lab findings the decision to treat as an outpatient was made. The patient remained stable while under my care. The patient appeared well at the time of discharge. Medical Decision Differential Diagnosis includes but is not limited to headache, tension headache , cluster headache, migraine, subarachnoid hemorrhage, meningitis, mass, central venous thrombus, concussion, trauma and epidural/subdural hemorrhage. Patient is a 41-year-old female who presents the ER for headache which has been present for the past 9 days. No fevers. No signs of meningitis or encephalitis on exam. Patient has a history of a hemangioma blastoma in the cerebellum. CBC and BMP were unremarkable. She is completely neurologically intact as discussed above and CT head was negative. She was given IV Compazine , Benadryl and Toradol. She did feel significantly better. I recommended MRI but she and her significant other declined. Risks and benefits were explained at length. I was concerned due to the previous cerebellar mass. I discussed that MRI is significantly much more sensitive. They declined after an extensive conversation. Patient was instructed to follow-up with PCP as an outpatient. Discussed with Pt concerning signs and symptoms to watch out for. Pt was instructed to follow up with their PCP and discussed with the patient their option to return to the ED at anytime for persistent or worsening symptoms. The appropriate anticipatory guidance and out-patient management, including indications for return to the emergency department, were explained at length to the patient and understood. Medication Reconcilliation Current Medication List: was personally reviewed by me Blood Pressure Screening Patient's blood pressure: Normal blood pressure Impression Primary Impression: Headache Scribe Attestation The scribe's documentation has been prepared under my direction and personally reviewed by me in its entirety. I confirm that the note above accurately reflects all work, treatment, procedures, and medical decision making performed by me. Departure Information Dispostion Home / Self-Care Referrals No Doctor, Assigned (PCP) Forms HOME CARE DOCUMENTATION FORM, IMPORTANT VISIT INFORMATION Patient Instructions My [facility] Additional Instructions Please follow up with your primary care doctor with in the next 24 hours. Any worsening of your symptoms, please return to the ED immediately. This includes any fevers greater than 100.4, worsening pain, chest pain, shortness breath, persistent nausea, vomiting, unable to eat or drink, unable to ambulate, or any other concerning signs or symptoms from your standpoint. You were given medications during this visit that will inhibit your ability to drive, operate machinery and work. Please do NOT drive, operate machinery, drink alcohol or work for the next 12hrs. Problem Qualifiers Primary Impression: Headache Headache type: unspecified Headache chronicity pattern: acute headache Intractability: not intractable Qualified Codes: R51 - Headache
== END 2017-10-22 20:20 | disposition home or self-care (01) ==
LOC: C.EDB 18:04
DX: R51 Headache (principal); Z86.011 Personal history of benign neoplasm of the brain; F17.200 Nicotine dependence, unspecified, uncomplicated; Z88.5 Allergy status to narcotic agent; Z88.6 Allergy status to analgesic agent; Z88.0 Allergy status to penicillin; Z80.9 Family history of malignant neoplasm, unspecified; Z82.49 Family history of ischemic heart disease and other diseases of the circulatory system